=== PATIENT | male | born 1990 | race Caucasian/White ===

== ENCOUNTER → 2022-07-03 | Outpatient (CLI) | payer BC ==
[~2022-07-03] VITALS: Ht 188 cm; Wt 146.0 kg
[~2022-07-03] MED LIST: BUSP5TAB59 PO; CITA10TA9 PO; MTP25TSR PO
== END ==
LOC: PREOP 05:38
PROVIDERS: ATTEND Surgery
DX: Z01.818 Encounter for other preprocedural examination (principal)

== ENCOUNTER 2022-07-12 12:52 | Day surgery (SDC) | payer BC ==
[~2022-07-12] VITALS: Ht 188 cm; Wt 146.0 kg
[2022-07-12] MEDS ORDERED: LACTATED RINGERS 1,000 ML IV STA (13:01)
[2022-07-12 13:05] VITALS: BP 135/71
[2022-07-12] MEDS ORDERED: HURRICAINE EXT TUBE (BENZOCAINE) ONE (13:14)
[2022-07-12] MEDS ORDERED: LACTATED RINGERS 1,000 ML IV ONE (13:14)
[2022-07-12] MEDS ORDERED: LIDOCAINE JELLY 2% 6 ML SYRINGE MM PRN (13:15)
[2022-07-12] MEDS ORDERED: HURRICAINE EXT TUBE (BENZOCAINE) XX PRN (13:15)
[2022-07-12] MEDS ORDERED: PANT40TA2 PO (13:21)
--- NOTE | 2022-07-12 13:21 | Progress Note-Pre Operative ---
Pre-Operative Progress Note Date of Available H&P: Jul 12, 2022 Date H&P Reviewed: Jul 12, 2022 Time H&P Reviewed: 13:00 History & Physical: No changes noted Pre-Operative Diagnosis: dysphagia/GERD ADOLPH GARCIA MD Jul 12, 2022 13:21
--- NOTE | 2022-07-12 13:22 | Discharge Inst-Surgical ---
D/C Lap Instructions-KIDO New, Converted, or Re-Newed RX: RX on Chart Follow Up Activity as tolerated High Fiber Diet 25g or more per day Avoid Alcohol, Caffeine, Spicy [place] and Acid foods. Drink 64 fluid oz or more of fluids per day. Symptoms to Report: Fever over 101 degree F, Nausea/Vomiting If any problems/questions: Contact your physician or go to Emergency Room ADOLPH GARCIA MD Jul 12, 2022 13:22
[2022-07-12] MEDS ORDERED: ONDANSETRON 4 MG (ZOFRAN) ORAL DISSOLVE TAB PO PRN (13:30)
[2022-07-12] MEDS ORDERED: ONDANSETRON 4 MG/2 ML (SDV) Z0FRAN IVP PRN (13:30)
[2022-07-12] MEDS ORDERED: LIDOCAINE JELLY 2% 6 ML SYRINGE ONE (14:03)
[2022-07-12] MEDS ORDERED: PROPOFOL INJECTION 50 ML IV ONE (14:04)
[2022-07-12] MEDS ORDERED: MIDAZOLAM 2 MG/2 ML (VERSED) VIAL ONE (14:04)
[2022-07-12 14:35] VITALS: BP 124/67
[2022-07-12 14:40] VITALS: BP 125/73
--- NOTE | 2022-07-12 14:43 | Anesthesia-General Post-Op ---
MAC Patient Condition Mental Status/LOC: Same as Preop Cardiovascular: Satisfactory Nausea/Vomiting: Absent Respiratory: Satisfactory Pain: Controlled Complications: Absent Post Op Complications Complications None Follow Up Care/Instructions Patient Instructions None needed. Anesthesiology Discharge Order Discharge Order Patient is doing well, no complaints, stable vital signs, no apparent adverse anesthesia problems. No complications reported per nursing. LANA STEWARD CRNA Jul 12, 2022 14:43
[2022-07-12 14:45] VITALS: BP 118/58
[2022-07-12 15:10] VITALS: BP 118/74
[2022-07-12 15:18] VITALS: BP 118/74
--- NOTE | 2022-07-12 15:30 | Progress Note-Post Operative ---
Post-Operative Progess Note Surgeon (s)/Insolvency Practitioner (s) Surgeon ADOLPH GARCIA MD Insolvency Practitioner: none Pre-Operative Diagnosis dysphagia/GERD Post-Operative Diagnosis reflux esophagitis(grade C), mild dist esoph stricture, small HH(1.5cm), mod-severe gastritis. Procedure & Operative Findings Date of Procedure 07/12/22 Procedure Performed/Findings EGD with bx and balloon dilatation. Anesthesia Type mac Estimated Blood Loss Estimated blood loss (mL): minimal Specimens/Packing Specimens Removed pyloric erosion, antrum, ge jxn ADOLPH GARCIA MD Jul 12, 2022 15:30
--- NOTE | 2022-07-13 02:32 | OPERATIVE REPORT ---
DATE OF SERVICE: 07/12/2022 ATTENDING PRIMARY CARE PHYSICIAN: Dr. Jackson Mcintyre. PREOPERATIVE DIAGNOSES: Gastroesophageal reflux disease and dysphagia. POSTOPERATIVE DIAGNOSES: Reflux esophagitis, Valencia grade C, mild distal esophageal stricture, small hiatal hernia 1.5 cm in size, moderate gastritis, pyloric erosions. No distal obstructions. PROCEDURE: EGD with biopsy and balloon dilatation. SURGEON: Adolph Garcia MD ANESTHESIA: Monitored anesthesia care. ESTIMATED BLOOD LOSS: Minimal. FINDINGS: Reflux esophagitis, Valencia grade C, mild distal esophageal stricture, small hiatal hernia 1.5 cm in size, moderate gastritis, pyloric erosions. No distal obstructions. DISPOSITION: The patient tolerated the procedure well. INDICATIONS: The patient is a 32-year-old male who was referred over to us for dysphagia. He states that he has been having this issue for the past year and some specific foods will cause a substernal pressure sensation for a significant amount of time and then this would either reduce on its own or he would regurgitate the food. He does not report any robyn episodes of nausea or vomiting as well as no hematemesis nor coffee-ground emesis. He also does report a history of gastroesophageal reflux disease. DESCRIPTION OF PROCEDURE: The patient was brought to the endoscopy suite and laid in the left lateral decubitus position. After adequate IV pain and sedative medications and monitored anesthesia care, the mouthpiece was applied. The endoscope was placed in the mouth, visualizing the pharynx and hypopharyngeal region. Vocal cords, epiglottis and vallecula identified and appeared to be normal. The endoscope was then gently intubated into the esophageal opening. Esophagus was insufflated. The endoscope was then advanced through the first, second and third portions of the esophagus at the level of the GE junction, a reflux esophagitis, Valencia grade C identified with a mild distal esophageal stricture. A biopsy was taken with forceps with visualization with good hemostasis. The endoscope was then advanced into the stomach. The endoscope was retroflexed, visualizing a small hiatal hernia approximately 1.5 cm in size. There was a moderate severity gastritis, which was diffuse and slightly worse in the pylorus with several erosions identified. Biopsy was taken of the pylorus as well as the antrum with forceps with visualization with good hemostasis. The endoscope was then advanced to the first and second portion of the duodenum, which appeared normal with no distal obstructions. The balloon was then placed into the stomach and pulled back to the area of the stricture. We then proceeded in a graded stepwise fashion from 2, 4, then eventually 6 atmospheres of pressure or 20 mm in luminal diameter and left this in place for approximately 60 seconds with moderate resistance. The balloon was then desufflated and removed with visualization with good hemostasis as well as no mucosal tears. The endoscope was then slowly withdrawn while taking a second look and suctioning of residual air with no additional findings. The patient tolerated the procedure well. We will recommend the necessary lifestyle and dietary accommodations including small and more frequent meals, avoiding eating at night as well as head elevation while lying supine. He also needs to avoid caffeinated beverages, spicy, greasy, acidic foods. His body mass index is also at 41, which is also a major risk factor for reflux and any type of regularly scheduled diet and exercise program for weight loss and maintenance would also be beneficial. We will also start him on Protonix 40 mg daily. If he does have recurrent episodes of dysphagia, we will have him follow up for another balloon dilatation. Job ID: [id number] DocumentID: [id number] Dictated Date: 07/12/2022 14:40:06 Die Cleaner Date: 07/13/2022 02:29:00 Dictated By: ADOLPH GARCIA MD
== END 2022-07-12 15:18 | disposition home or self-care (01) ==
LOC: ENDO 12:52
PROVIDERS: ATTEND Surgery
DX: K21.00 Gastro-esophageal reflux disease with esophagitis, without bleeding (principal); K22.2 Esophageal obstruction; K44.9 Diaphragmatic hernia without obstruction or gangrene; K29.70 Gastritis, unspecified, without bleeding; K25.3 Acute gastric ulcer without hemorrhage or perforation; K25.7 Chronic gastric ulcer without hemorrhage or perforation; B96.81 Helicobacter pylori [H. pylori] as the cause of diseases classified elsewhere; K31.A0 Gastric intestinal metaplasia, unspecified; K29.50 Unspecified chronic gastritis without bleeding; E66.01 Morbid (severe) obesity due to excess calories; Z68.41 Body mass index [BMI] 40.0-44.9, adult
CPT/HCPCS: 88305

== ENCOUNTER → 2022-09-26 | Outpatient (CLI) | payer BC ==
[~2022-09-26] MED LIST changes: +PANT40TA2 PO
--- NOTE | 2022-09-26 08:38 | Diagnostic Imaging Report ---
PROCEDURE: US Gallbladder. TECHNIQUE: Multiple real-time grayscale images were obtained over the right upper quadrant in various projections. INDICATION: Right upper quadrant pain COMPARISON: None available. FINDINGS: The liver is mildly enlarged measuring 21 cm in length. The liver demonstrates diffusely increased echogenicity with poor acoustic transmission. No focal hepatic mass. Normal direction of flow within the main portal vein. The gallbladder is unremarkable. The common bile duct is unable to be visualized secondary to overlying bowel gas. The pancreas is predominantly obscured by overlying bowel gas. Minimally visualized portions of the abdominal aorta and inferior vena cava are unremarkable, though they are predominantly obscured by overlying bowel gas. A round 5.5 x 3.1 cm anechoic cyst with posterior acoustic enhancement is noted within the superior pole of the right kidney. The right kidney is otherwise unremarkable. No significant free fluid. Negative sonographic Purcell sign. Examination slightly limited secondary to patient body habitus. IMPRESSION: Hepatomegaly with associated fatty infiltration of the liver. Right renal cyst. Dictated by: Dictated on workstation # [id number]
== END ==
LOC: RAD 07:16
PROVIDERS: ATTEND Surgery
DX: K76.0 Fatty (change of) liver, not elsewhere classified (principal)
CPT/HCPCS: 76705

== ENCOUNTER → 2023-03-21 | Outpatient (CLI) | payer BC | END | disposition home or self-care (01) | LOC: PREOP 06:27 | PROVIDERS: ATTEND Surgery | DX: Z01.818 Encounter for other preprocedural examination (principal) ==